=== PATIENT | female | born 1965 | race African-American/Black ===

== ENCOUNTER 2019-09-19 16:52 | Observation (INO) | payer OTHER ==
[2019-09-19] MEDS ORDERED: ASPIRIN 81 MG CHEWABLE TABLET ONE (17:26)
--- NOTE | 2019-09-19 17:42 | ER ---
Nurse's Notes [facility] Name: Yomaira Hutchison Age: 54 yrs Sex: Female : 1965 Arrival Date: 09/19/2019 Time: 16:53 Bed 15 Private MD: Rex Le R Diagnosis: Other chest pain;Essential (primary) hypertension Presentation: 09/19 16:59 Presenting complaint: Patient states: anterior chest pain that radiates to the back and sv left arm, bilateral jaw pain, SOB since Tuesday. Transition of care: patient was not received from another setting of care. Onset of symptoms was September 14, 2019. 16:59 Method Of Arrival: Ambulatory sv 16:59 Acuity: DEISY 2 sv 20:19 Risk Assessment: Do you want to hurt yourself or someone else? Patient reports no rv desire to harm self or others. Initial Sepsis Screen: Does the patient meet any 2 criteria? No. Patient's initial sepsis screen is negative. Does the patient have a suspected source of infection? No. Patient's initial sepsis screen is negative. Care prior to arrival: None. Triage Assessment: 17:00 General: Appears in no apparent distress. comfortable, obese, Behavior is cooperative, bp appropriate for age, anxious. Pain: Complains of pain in chest. EENT: No deficits noted. Neuro: No deficits noted. Cardiovascular: Rhythm is sinus rhythm. Respiratory: No deficits noted. GI: No signs and/or symptoms were reported involving the gastrointestinal system. : No signs and/or symptoms were reported regarding the genitourinary system. Derm: No deficits noted. Musculoskeletal: No deficits noted. Historical: - Allergies: 17:00 Sulfa (Sulfonamide Antibiotics); sv - PMHx: 17:00 Thyroid problem; bradycardia; sv - PSHx: 17:00 Tonsillectomy; Hysterectomy; Nasal Sugery; cardiac stents x 3; sv - Immunization history:: Adult Immunizations up to date. - Family history:: not pertinent. - Social history:: Smoking status: unknown. - Ebola Screening: : No symptoms or risks identified at this time. Screenin:56 Abuse screen: Denies threats or abuse. Denies injuries from another. Nutritional bp screening: No deficits noted. Tuberculosis screening: No symptoms or risk factors identified. Fall Risk None identified. Assessment: 17:00 General: SEE TRIAGE NOTE. bp 17:55 Reassessment: ADMIT INITIATED. NO S/S ACUTE DISTRESS, STATES PAIN PRESENT BUT MINIMAL. bp 18:31 Reassessment: ADMIT IN PROCESS, TO BE HELD FOR SHIFT CHANGE. PT STATES RELIEF OF S/S bp AFTER MEDICATION. 20:20 Pain: Pain began suddenly. rv 20:20 Pain: Pain does not radiate. rv Vital Signs: 16:59 BP 162 / 90; Pulse 67; Resp 20; Temp 97; Pulse Ox 98% ; Weight 125.19 kg; Height 5 ft. sv 4 in. (162.56 cm); 18:00 BP 160 / 86; Pulse 73; Resp 17; Pulse Ox 98% ; bp 19:00 BP 150 / 80; Pulse 66; Resp 17; Pulse Ox 98% on R/A; rv 20:18 BP 115 / 84; Pulse 63; Resp 16; Pulse Ox 97% on R/A; rv 16:59 Body Mass Index 47.37 (125.19 kg, 162.56 cm) sv ED Course: 16:53 Patient arrived in ED. as 17:00 Triage completed. sv 17:00 Rex Le MD is Private Physician. as 17:01 Chuy Boyd MD is Attending Physician. cielo 17:01 Arm band placed on. sv 17:02 Senthil Breen, AMBIKA is Primary Nurse. bp 17:16 Missed attempt(s): 22 gauge in right antecubital area. Bleeding controlled, band aid ca1 applied, catheter tip intact. 17:41 Charlene Cortez MD is Hospitalizing Provider. cielo 17:45 Inserted saline lock: 22 gauge in left antecubital area, using aseptic technique. Blood bp collected. Patient maintains SpO2 saturation greater than 95% on room air. 17:56 Patient has correct armband on for positive identification. Bed in low position. Call bp light in reach. Side rails up X2. director credit risk on. Pulse ox on. NIBP on. 20:19 No provider procedures requiring assistance completed. Patient admitted, IV remains in rv place. Administered Medications: 17:45 Drug: Aspirin Chewable Tablet 162 mg Route: PO; bp 18:33 Follow up: Response: No adverse reaction bp 18:00 Drug: Lovenox 100 mg Route: Sub-Q; Site: right lower abdomen; bp 18:33 Follow up: Response: No adverse reaction bp 18:00 Drug: morphine 4 mg Route: IVP; Site: left antecubital; bp 18:34 Follow up: Response: No adverse reaction bp 18:00 Drug: Zofran 4 mg Route: IVP; Site: left antecubital; bp 18:34 Follow up: Response: Nausea is decreased bp Outcome: 17:41 Decision to Hospitalize by Provider. cielo 20:20 Admitted to Tele accompanied by tech, via wheelchair, room 426, with chart, Report rv called to SADIA APPLE 20:20 Condition: good 20:20 Instructed on the need for admit. 20:21 Patient left the ED. rv Signatures: Norah Farooq RN RN Chuy Gómez MD MD cha Martinez, Amelia as Peltier, Brian RN RN Isaias Flynn RN RN rv Felisa Hernandez RN RN ca1 Corrections: (The following items were deleted from the chart) 17:01 16:59 Temp 97F; [facility]
--- NOTE | 2019-09-19 17:42 | EDPHYS ---
Physician Documentation [facility] Name: Yomaira Hutchison Age: 54 yrs Sex: Female : 1965 Arrival Date: 09/19/2019 Time: 16:53 Bed 15 Private MD: Rex Le R ED Physician Chuy Boyd HPI: 09/19 17:36 This 54 yrs old Black Female presents to ER via Ambulatory with complaints of Chest cielo Pain. 17:36 The patient or guardian reports chest pain that is located primarily in the substernal cielo area, anterior chest wall, left. Onset: 2 day(s) ago. The pain does not radiate. Associated signs and symptoms: Pertinent positives: dizziness, shortness of breath. The chest pain is described as a pressure. Severity of pain: At its worst the pain was mild moderate in the emergency department the pain has improved mildly. The patient has experienced similar episodes in the past, a few times. Historical: - Allergies: 17:00 Sulfa (Sulfonamide Antibiotics); sv - PMHx: 17:00 Thyroid problem; bradycardia; sv - PSHx: 17:00 Tonsillectomy; Hysterectomy; Nasal Sugery; cardiac stents x 3; sv - Immunization history:: Adult Immunizations up to date. - Family history:: not pertinent. - Social history:: Smoking status: unknown. - Ebola Screening: : No symptoms or risks identified at this time. ROS: 17:36 Constitutional: Negative for fever, chills, and weight loss, Eyes: Negative for injury, cielo pain, redness, and discharge, ENT: Negative for injury, pain, and discharge, Neck: Negative for injury, pain, and swelling, Respiratory: Negative for shortness of breath, cough, wheezing, and pleuritic chest pain, Abdomen/GI: Negative for abdominal pain, nausea, vomiting, diarrhea, and constipation, Back: Negative for injury and pain, : Negative for injury, bleeding, discharge, and swelling, MS/Extremity: Negative for injury and deformity, Skin: Negative for injury, rash, and discoloration, Neuro: Negative for headache, weakness, numbness, tingling, and seizure, Psych: Negative for depression, anxiety, suicide ideation, homicidal ideation, and hallucinations, Allergy/Immunology: Negative for hives, rash, and allergies, Endocrine: Negative for neck swelling, polydipsia, polyuria, polyphagia, and marked weight changes, Hematologic/Lymphatic: Negative for swollen nodes, abnormal bleeding, and unusual bruising. 17:36 Cardiovascular: Positive for chest pain. Exam: 17:36 Constitutional: This is a well developed, well nourished patient who is awake, alert, cielo and in no acute distress. Head/Face: Normocephalic, atraumatic. Eyes: Pupils equal round and reactive to light, extra-ocular motions intact. Lids and lashes normal. Conjunctiva and sclera are non-icteric and not injected. Cornea within normal limits. Periorbital areas with no swelling, redness, or edema. ENT: Nares patent. No nasal discharge, no septal abnormalities noted. Tympanic membranes are normal and external auditory canals are clear. Oropharynx with no redness, swelling, or masses, exudates, or evidence of obstruction, uvula midline. Mucous membranes moist. Neck: Trachea midline, no thyromegaly or masses palpated, and no cervical lymphadenopathy. Supple, full range of motion without nuchal rigidity, or vertebral point tenderness. No Meningismus. Chest/axilla: Normal chest wall appearance and motion. Nontender with no deformity. No lesions are appreciated. Cardiovascular: Regular rate and rhythm with a normal S1 and S2. No gallops, murmurs, or rubs. Normal PMI, no JVD. No pulse deficits. Respiratory: Lungs have equal breath sounds bilaterally, clear to auscultation and percussion. No rales, rhonchi or wheezes noted. No increased work of breathing, no retractions or nasal flaring. Abdomen/GI: Soft, non-tender, with normal bowel sounds. No distension or tympany. No guarding or rebound. No evidence of tenderness throughout. Back: No spinal tenderness. No costovertebral tenderness. Full range of motion. Female : Normal external genitalia. Skin: Warm, dry with normal turgor. Normal color with no rashes, no lesions, and no evidence of cellulitis. MS/ Extremity: Pulses equal, no cyanosis. Neurovascular intact. Full, normal range of motion. Neuro: Awake and alert, GCS 15, oriented to person, place, time, and situation. Cranial nerves II-XII grossly intact. Motor strength 5/5 in all extremities. Sensory grossly intact. Cerebellar exam normal. Normal gait. Psych: Awake, alert, with orientation to person, place and time. Behavior, mood, and affect are within normal limits. 17:36 Musculoskeletal/extremity: DVT Exam: No signs of deep vein thrombosis. no pain, no swelling, no tenderness, negative Homans' sign noted on exam, no appreciated bluish discoloration, no erythema, no increased warmth. Vital Signs: 16:59 BP 162 / 90; Pulse 67; Resp 20; Temp 97; Pulse Ox 98% ; Weight 125.19 kg; Height 5 ft. sv 4 in. (162.56 cm); 18:00 BP 160 / 86; Pulse 73; Resp 17; Pulse Ox 98% ; bp 19:00 BP 150 / 80; Pulse 66; Resp 17; Pulse Ox 98% on R/A; rv 20:18 BP 115 / 84; Pulse 63; Resp 16; Pulse Ox 97% on R/A; rv 16:59 Body Mass Index 47.37 (125.19 kg, 162.56 cm) sv MDM: 17:01 Patient medically screened. [facility] 17:38 Data reviewed: vital signs, nurses notes, lab test result(s), EKG, radiologic studies, cielo plain films. 09/19 17:04 Order name: Basic Metabolic Panel; Complete Time: 18:39 [facility] 09/19 17:04 Order name: CBC with Diff [facility] 09/19 17:04 Order name: LFT's; Complete Time: 18:39 [facility] 09/19 17:04 Order name: Magnesium; Complete Time: 18:39 [facility] 09/19 17:04 Order name: NT PRO-BNP; Complete Time: 18:39 [facility] 09/19 17:04 Order name: PT-INR; Complete Time: 18:39 [facility] 09/19 17:04 Order name: Troponin (emerg Dept Use Only); Complete Time: 18:39 [facility] 09/19 17:04 Order name: Lipase; Complete Time: 18:39 [facility] 09/19 17:04 Order name: Urine Culture [facility] 09/19 17:50 Order name: Basic Metabolic Panel [facility] 09/19 17:50 Order name: Basic Metabolic Panel [facility] 09/19 17:50 Order name: CBC with Automated Diff [facility] 09/19 17:50 Order name: CBC with Automated Diff [facility] 09/19 17:50 Order name: Troponin I [facility] 09/19 17:04 Order name: XRAY Chest (1 view) [facility] 09/19 17:04 Order name: EKG; Complete Time: 17:05 [facility] 09/19 17:50 Order name: CONS Physician Consult [facility] 09/19 17:50 Order name: CONS Physician Consult [facility] 09/19 17:50 Order name: Regular [facility] 09/19 17:50 Order name: Echo with Doppler [facility] 09/19 17:50 Order name: EKG Electrocardiogram [facility] 09/19 17:50 Order name: Troponin I [facility] 09/19 17:51 Order name: Troponin I [facility] 09/19 17:52 Order name: Urine Dipstick--Ancillary (enter results) 09/19 18:18 Order name: RAD; Complete Time: 18:18 [facility] 09/19 18:49 Order name: Urine Dipstick-Ancillary [facility] 09/19 17:04 Order name: Cardiac monitoring; Complete Time: 17:53 [facility] 09/19 17:04 Order name: EKG - Nurse/Tech; Complete Time: 17:53 [facility] 09/19 17:04 Order name: IV Saline Lock; Complete Time: 17:53 [facility] 09/19 17:04 Order name: Labs collected and sent; Complete Time: 17:53 [facility] 09/19 17:04 Order name: O2 Per Protocol; Complete Time: 17:53 [facility] 09/19 17:04 Order name: O2 Sat Monitoring; Complete Time: 17:53 [facility] 09/19 17:04 Order name: Urine Dipstick-Ancillary (obtain specimen); Complete Time: 17:53 [facility] 09/19 17:50 Order name: EKG Electrocardiogram [facility] 09/19 17:50 Order name: EKG Electrocardiogram [facility] 09/19 17:50 Order name: EKG Electrocardiogram [facility] 09/19 17:50 Order name: EKG Electrocardiogram [facility] Administered Medications: 17:45 Drug: Aspirin Chewable Tablet 162 mg Route: PO; bp 18:33 Follow up: Response: No adverse reaction bp 18:00 Drug: Lovenox 100 mg Route: Sub-Q; Site: right lower abdomen; bp 18:33 Follow up: Response: No adverse reaction bp 18:00 Drug: morphine 4 mg Route: IVP; Site: left antecubital; bp 18:34 Follow up: Response: No adverse reaction bp 18:00 Drug: Zofran 4 mg Route: IVP; Site: left antecubital; bp 18:34 Follow up: Response: Nausea is decreased bp Disposition: 09/19/19 17:41 Hospitalization ordered by Charlene Cortez for Observation. Preliminary diagnosis are Other chest pain, Essential (primary) hypertension. - Bed requested for Telemetry/MedSurg (Inpatient). - Status is Observation. rv - Condition is Fair. - Problem is new. - Symptoms have improved. UTI on Admission? No Signatures: Dispatcher [employer] EDMS Kelsey English Stephanie, RN RN sv Chuy Boyd MD MD cha Peltier, Brian, RN RN bp Isaias Springer, RN RN rv Corrections: (The following items were deleted from the chart) 18:09 17:41 Hospitalization Ordered by Charlene Cortez MD for Observation. Preliminary bd diagnosis is Other chest pain; Essential (primary) hypertension. Bed requested for Telemetry/MedSurg (Inpatient). Status is Observation. Condition is Fair. Problem is new. Symptoms have improved. UTI on Admission? No. cielo 20:21 18:09 09/19/2019 17:41 Hospitalization Ordered by Charlene Cortez MD for Observation. rv Preliminary diagnosis is Other chest pain; Essential (primary) hypertension. Bed requested for Telemetry/MedSurg (Inpatient). Status is Observation. Condition is Fair. Problem is new. Symptoms have improved. UTI on Admission? No. bd
[2019-09-19] MEDS ORDERED: MORPHINE 4 MG/ML SYR IV PRN (17:45)
[2019-09-19] MEDS ORDERED: ACETAMINOPHEN 325 MG TABLET PO PRN (17:45)
[2019-09-19] MEDS ORDERED: ONDANSETRON 4 MG/2 ML VIAL IV PRN (17:45)
[2019-09-19] MEDS ORDERED: ENOXAPARIN 100 MG/ML SYR SQ ONE (18:13)
--- NOTE | 2019-09-19 18:16 | RAD REPORT ---
EXAM DESCRIPTION: Mirian Single View09/19/2019 5:55 pm CLINICAL HISTORY: Chest pain COMPARISON: 2014 FINDINGS: The lungs appear clear of acute infiltrate. The heart is mildly enlarged. Postsurgical changes involve the chest. IMPRESSION: No acute abnormalities displayed
[2019-09-19 18:18] LABS: Protime INR 1.16
[2019-09-19 18:29] LABS: ALT/SGPT 22 U/L (12-78); AST/SGOT 17 U/L (15-37); Albumin 3.7 g/dL (3.4-5.0); Alkaline Phosphatase 76 U/L (45-117); BUN Blood Urea Nitrogen 13 mg/dL (7-18); Bicarbonate 29 mmol/L (21-32); Bilirubin Direct < 0.1 mg/dL (0-0.2); Bilirubin Total 0.3 mg/dL (0.2-1.0); Glucose Level 102 mg/dL (74-106); Lipase 92 U/L (73-393); Magnesium 2.1 mg/dL (1.8-2.4); NT PRO-BNP 159 pg/mL (<125); Potassium 3.9 mmol/L (3.5-5.1); Protein, Total 8.1 g/dL (6.4-8.2); Sodium Level 140 mmol/L (136-145); Troponin (Emerg Dept Use Only) 0.04 ng/mL (0.0-0.045)
[2019-09-19 18:34] LABS: Absolute Lymphocytes (CBC) 2.5 K/uL (0.7-4.9); Basophils % 0.8 % (0-1.3); Hematocrit 33.8 % (36.0-45.0); Lymphocytes % 35.6 % (15.3-44.8); MPV 9.2 fL (7.6-11.3); RBC Red Blood Cell Count 4.23 M/uL (3.86-4.86)
[2019-09-19 18:48] LABS: Urine Blood NEGATIVE (NEG); Urine Glucose NEGATIVE (NEG); Urine Protein NEGATIVE (NEG); Urine Specific Gravity 1.015 (1.005-1.030); Urine pH 5.5 (5.0-7.0)
[2019-09-19] MEDS: ENOXAPARIN 100 MG/ML SYR SQ SCH (20:50)
[2019-09-19 21:12] VITALS: BMI 47.4
[2019-09-19] MEDS ORDERED: TEMAZEPAM 15 MG CAP PO PRN (22:37)
[2019-09-19 22:59] VITALS: O2SAT 97
[2019-09-19] MEDS: FAMOTIDINE 20 MG/2 ML VIAL IV SCH (23:41)
[2019-09-20 03:35] LABS: Absolute Lymphocytes (CBC) 2.2 K/uL (0.7-4.9); Basophils % 1.1 % (0-1.3); Hematocrit 31.4 % (36.0-45.0); Lymphocytes % 29.6 % (15.3-44.8); MPV 8.4 fL (7.6-11.3); RBC Red Blood Cell Count 3.95 M/uL (3.86-4.86)
[2019-09-20 03:56] LABS: Potassium 3.8 mmol/L (3.5-5.1)
[2019-09-20] MEDS ORDERED: INFLUENZA VACCINE (for 3y+) 0.5 ML DOSE IMVAC ONE ×2 (08:00→16:00)
--- NOTE | 2019-09-20 08:46 | P.HP ---
Certification for Inpatient Patient admitted to: Observation With expected LOS: <2 Midnights Patient will require the following post-hospital care: None Practitioner: I am a practitioner with admitting privileges, knowledge of patient current condition, hospital course, and medical plan of care. Services: Services provided to patient in accordance with Admission requirements found in Title 42 Section 412.3 of the Code of Federal Regulations Patient History Date of Service: 09/19/19 Reason for admission: Chest pain rule out acute coronary syndrome History of Present Illness: patient is a 54-year-old female who came to the hospital with sternal discomfort. Pain was mainly in the sternal region and it did radiate to her back. She had this started on medications for her abdominal pain and nausea and vomiting. She was also having some upper quadrant tenderness which is most likely related to hernia. Patient will need admission for hospitalization. We will check a game in devices and we will monitor her cardiac status closely. Admit for further evaluation. Patient will be admitted for observation. Allergies Sulfa (Sulfonamide Antibiotics) Allergy (Unknown, Verified 04/05/14 05:21) swelling Home Medications: Aspirin 81 mg PO DAILY 04/05/14 Ezetimibe [Zetia*] 10 mg PO BEDTIME 04/05/14 Isosorbide Mononitrate [Isosorbide Mononitrate ER] 30 mg PO DAILY 04/05/14 Levothyroxine [Synthroid] 112 mcg PO [id number] 04/05/14 Omeprazole [Prilosec] 40 mg PO DAILY 04/05/14 Simvastatin [Zocor*] 40 mg PO BEDTIME 04/05/14 Lactobacillus Acidophilus [Probiotic] 1 cap PO DAILY 09/19/19 Prasugrel HCl 10 mg PO SEECOM 09/19/19 - Past Medical/Surgical History Has patient received pneumonia vaccine in the past: No Diabetic: No -: bradycardia -: heart disease -: cardiac stents -: hypercholesterolemia -: reflux -: hypothyroidism -: triple bypass -: cardiac stents x 3 -: hysterectomy -: tonsillectomy -: nasal sx - Family History Father Medical History: Heart disease, Hypertension, Diabetes, Kidney disease Notes: neuropathy Mother Medical History: Hypertension Notes: hypothyroidism. irregular heart beat Brother Medical History: Hypertension - Social History Smoking Status: Never smoker Alcohol use: Yes CD- Drugs: No Caffeine use: Yes Place of Residence: Home Review of Systems 10-point ROS is otherwise unremarkable Physical Examination - Vital Signs Temperature: 96.8 F Blood Pressure: 137/63 Pulse: 130 Respirations: 16 Pulse Ox (%): 92 - Physical Exam General: Alert, In no apparent distress, Oriented x3 HEENT: Atraumatic, PERRLA, Mucous membr. moist/pink, EOMI, Sclerae nonicteric Neck: Supple, 2+ carotid pulse no bruit, No LAD, Without JVD or thyroid abnormality Respiratory: Clear to auscultation bilaterally, Normal air movement Cardiovascular: Regular rate/rhythm, Normal S1 S2, No murmurs Gastrointestinal: Normal bowel sounds, Hypoactive, Soft and benign, Non- distended, No tenderness Musculoskeletal: No clubbing, No swelling, No tenderness Integumentary: No rashes Neurological: Normal gait, Normal speech, Normal strength at 5/5 x4 extr, Normal tone, Sensation intact, Cranial nerves 3-12 intact, Normal affect Lymphatics: No axilla or inguinal lymphadenopathy Assessment & Plan - Problems (Diagnosis) (1) Acute coronary insufficiency syndrome Current Visit: No Status: Acute (2) Chest pain Current Visit: No Status: Acute - Plan 1. Serial troponins and EKG 2. Cardiology consultation 3. Echocardiogram and possible inpatient stress test 4. Anti-platelet therapy, anti coagulation, beta-bing, statin, and O2 as needed 5. IV morphine for pain 6. Nitro p.r.n. Discharge Plan: Home Plan to discharge in: 24 Hours - Advance Directives Does patient have a Living Will: No Does patient have a Durable POA for Healthcare: No - Code Status/Comfort Care Code Status Assessed: Yes Code Status: Full Code Critical Care: No Time Spent Managing PTS Care (In Minutes): 45
[2019-09-20] MEDS ORDERED: ASPIRIN EC 81 MG TAB PO SCH (09:00)
[2019-09-20] MEDS: ENOXAPARIN 100 MG/ML SYR SQ SCH (09:00)
[2019-09-20] MEDS: FAMOTIDINE 20 MG/2 ML VIAL IV SCH (09:40)
--- NOTE | 2019-09-20 10:59 | EKG ---
Test Date: 2019-09-20 Test Time: 08:44:25 Assistant Finance Director: ANDREW MEASUREMENT RESULTS: Intervals: Rate: 56 DE: 262 QRSD: 80 QT: 436 QTc: 420 Irwin: P: 43 DE: 262 QRS: 45 T: 70 INTERPRETIVE STATEMENTS: Sinus bradycardia with 1st degree AV block Otherwise normal ECG Compared to ECG 09/19/2019 17:21:31 Sinus rhythm no longer present T-wave abnormality no longer present Electronically Signed On 09-20-19 10:58:09 BRANCH LOGISTICS SUPERVISOR by Indra Pepper
[2019-09-20] MEDS ORDERED: LEVOTHYROXINE SOD 0.112 MG TAB PO SCH (11:00)
[2019-09-20] MEDS ORDERED: ISOSORBIDE MONO SR 30 MG TAB PO SCH (11:00)
[2019-09-20] MEDS ORDERED: PRASUGREL (EFFIENT) 10 MG TAB PO SCH ×2 (11:00)
--- NOTE | 2019-09-20 11:00 | EKG ---
Test Date: 2019-09-19 Test Time: 17:21:31 Shaker Washer: TT MEASUREMENT RESULTS: Intervals: Rate: 63 MN: 218 QRSD: 78 QT: 404 QTc: 413 Jenkins: P: 53 MN: 218 QRS: 87 T: 66 INTERPRETIVE STATEMENTS: Sinus rhythm with 1st degree AV block Nonspecific T wave abnormality Abnormal ECG Compared to ECG 04/07/2014 08:46:27 First degree AV block now present T-wave abnormality still present Electronically Signed On 09-20-19 10:58:24 HIGH LIFT OPERATOR by Indra Pepper
--- NOTE | 2019-09-20 11:17 | ECHO ---
HEIGHT: 5 ft 4 in WEIGHT: 276 lb 4.8 oz DATE OF STUDY: 09/20/[address]: Chuy Boyd MD 2-DIMENSIONAL: YES M.MODE: YES DOPPLER: YES COLOR FLOW: YES TDS: YES PORTABLE: NO DEFINITY: NO BUBBLE STUDY: NO DIAGNOSIS: CHEST PAIN CARDIAC HISTORY: CATHERIZATION: YES SURGERY: YES PROSTHETIC VALVE: NO PACEMAKER: NO MEASUREMENTS (cm) DIASTOLIC (NORMALS) SYSTOLIC (NORMALS) IVSd 1.0 (0.6-1.2) LA Diam 2.9 (1.9-4.0) LVEF 51% LVIDd 3.7 (3.5-5.7) LVIDs 2.8 (2.0-3.5) %FS 25% LVPWd 1.1 (0.6-1.2) Ao Diam 2.6 (2.0-3.7) 2 DIMENSIONAL ASSESSMENT: RIGHT ATRIUM: NORMAL LEFT ATRIUM: NORMAL RIGHT VENTRICLE: NORMAL LEFT VENTRICLE: NORMAL TRICUSPID VALVE: NORMAL MITRAL VALVE: NORMAL PULMONIC VALVE: NORMAL AORTIC VALVE: NORMAL PERICARDIAL EFFUSION: NONE AORTIC ROOT: NORMAL LEFT VENTRICULAR WALL MOTION: NORMAL. DOPPLER/COLOR FLOW: NORMAL. COMMENTS: NORMAL 2D ECHO WITH DOPPLER. NO WALL MOTION ABNORMALITY. NO EFFUSION. TECHNOLOGIST: MAGUI COLVIN
[2019-09-20 12:02] VITALS: BP 146/70; TEMP 96.9
--- NOTE | 2019-09-20 20:28 | CON ---
Date of Consultation: 09/20/2019 Reason For Consultation: Chest pain. History Of Present Illness: Ms. Hutchison is a 54-year-old black woman, has had a history of CABG in t he past as well as coronary artery disease status post stent x3. She has a history of dyslipidemia, hypertension, hypothyroidism, gastroesophageal reflux disease. She came in with chest pain that is m ostly exertional. It happens mostly with severe exertion and it does last for about 5 to 10 minutes. No nausea, vomiting, diaphoresis, PND, orthopnea, pedal edema, palpitations, or syncope. Her last stress test in my office was approximately a year ago showing no evidence of ischemia. So far she hodgson s ruled out for an KS. Her EKG, chest x-ray, blood work are all normal. Troponin is negative. Echo cardiogram was normal. She is now symptoms free. Allergies: NONE. Review of Systems: Negative. Social History: Negative. Family History: Noncontributory. Medications: At home include Synthroid, Prilosec, aspirin, Zetia, Imdur, Effient, and Zocor. Physical Examination: General: She is pleasant as usual. Vital Signs: Stable, afebrile. No acute distress. Sinus rhythm. HEENT: Negative. Neck: Supple with no bruit, lymphadenopathy, JVD, or thyromegaly. Chest: Clear to auscultation and percussion. Cardiac: Revealed a regular rhythm and rate. No murmurs, gallops, or rubs. Abdomen: Benign. Extremities: Revealed no clubbing, cyanosis, or edema. Skin: Dry and intact. Neurological: She was nonfocal. Impression And Plan: I think Ms. Hutchison is having symptoms that are consistent with angina. She hodgson d symptoms on exertion that last 5 to 10 minutes. She has ruled out for an KS, never the less, but s uggested a heart catheterization on her. Ms. Hutchison is nervous about having a catheterization in [facility]. She has had complications in the past with her catheterization. She would prefer having it done in [place]. From my standpoint, she can go home today. I will make a regular followup to cait whitley an outpatient catheterization with 1 of the crew leader/control room operator at [facility]. She understand the risk and the benefits of the procedure, understands the risks and the benefits of being discharge d and she agreed to proceed. Meanwhile, her blood pressure was poorly controlled and I will add a ca lcium channel bing to her regimen for antianginal purposes. I am going to start Norvasc. In the past, metoprolol made her very bradycardic and very tired and she had to stop it. From a coronary ar sanju disease standpoint, she has had CABG. She had a HUMPHREYS to the LAD that is open. She had vein gra ft to the OM and the RCA, both were occluded. She had a 90% diagonal lesion. She had circumflex adalbetro nt and RCA stents as well. Her other problems include dyslipidemia, hypothyroidism, gastroesophageal reflux disease, and obesity, all of those seem to be stable at this point. Again Ms. Hutchison can go home. I will make arrangements for her to have an outpatient catheterization in [place]. The only addition to her medicine should be Norvasc 5 mg daily. ENDY/MARY Voice ID: [id number] Report ID: [id number]
[2019-09-20] MEDS ORDERED: ATORVASTATIN 20 MG TAB PO SCH (21:00)
[2019-09-20] MEDS ORDERED: EZETIMIBE 10 MG TAB PO SCH (21:00)
[2019-09-21] MEDS ORDERED: LEVOTHYROXINE SOD 0.112 MG TAB PO SCH (06:00)
[2019-09-21] MEDS ORDERED: LACTOBACILLUS/ACIDOPHILUS TAB PO SCH (09:00)
[2019-09-21] MEDS ORDERED: ISOSORBIDE MONO SR 60 MG TAB PO SCH (09:00)
[2019-09-21] MEDS ORDERED: HOME MED 1 EA UNK (Omeprazole [Prilosec] 40 MG) PO SCH (09:00)
[2019-09-21] MEDS ORDERED: ASPIRIN 81 MG CHEWABLE TABLET PO SCH (09:00)
[2019-09-21] MEDS ORDERED: AMLODIPINE 5 MG TAB PO SCH (09:00)
--- NOTE | 2019-09-22 01:11 | P.DS ---
Discharge Date: 09/20/19 Disposition: ROUTINE DISCHARGE Discharge Condition: GOOD Reason for Admission: Chest pain rule out acute coronary syndrome Consultations: INSIDE WIREMAN - Problems (1) Acute coronary insufficiency syndrome Status: Acute (2) Chest pain Status: Acute Brief History of Present Illness: patient is a 54-year-old female who came to the hospital with sternal discomfort. Pain was mainly in the sternal region and it did radiate to her back. She had this started on medications for her abdominal pain and nausea and vomiting. She was also having some upper quadrant tenderness which is most likely related to hernia. Patient will need admission for hospitalization. We will check a game in devices and we will monitor her cardiac status closely. Admit for further evaluation. Patient will be admitted for observation. Hospital Course: PATIENT TROPONINS HAVE BEEN NEGATIVE. PATIENT BEEN HAVING ANGINA AND WAS STARTED ON AMLODIPINE. AT THIS TIME PATIENT IS STABLE FOR DISCHARGE HOME WITH OUTPATIENT FOLLOW-UP. PATIENT WILL FOLLOW WITH CARDIOLOGY IN 1 WEEK. POSSIBLE INTERVENTION THAT MAY BE NEEDED AT [facility] IN [place]. THIS WILL BE ARRANGED AN OUTPATIENT PER CARDIOLOGY IF DEEMED NECESSARY. Vital Signs/Physical Exam: Temp Pulse Resp BP Pulse Ox 96.9 F 59 16 146/70 H 98 09/20/19 12:00 09/20/19 12:00 09/20/19 12:00 09/20/19 12:00 09/20/19 12:00 General: Alert, In no apparent distress, Oriented x3 Laboratory Data at Discharge: WBC 7.4 K/uL (4.3-10.9) 09/20/19 03:13 Hgb 10.1 g/dL (12.0-15.0) L 09/20/19 03:13 Hct 31.4 % (36.0-45.0) L 09/20/19 03:13 Plt Count 241 K/uL (152-406) D 09/20/19 03:13 PT 13.6 SECONDS (9.5-12.5) H 09/19/19 17:45 INR 1.16 09/19/19 17:45 Sodium 141 mmol/L (136-145) 09/20/19 03:13 Potassium 3.8 mmol/L (3.5-5.1) 09/20/19 03:13 BUN 13 mg/dL (7-18) 09/20/19 03:13 Creatinine 0.83 mg/dL (0.55-1.3) 09/20/19 03:13 Glucose 101 mg/dL (74-106) 09/20/19 03:13 Magnesium 2.1 mg/dL (1.8-2.4) 09/19/19 17:45 Total Bilirubin 0.3 mg/dL (0.2-1.0) 09/19/19 17:45 AST 17 U/L (15-37) 09/19/19 17:45 ALT 22 U/L (12-78) 09/19/19 17:45 Alkaline Phosphatase 76 U/L (45-117) 09/19/19 17:45 Troponin I 0.03 ng/mL (0.0-0.045) 09/20/19 03:13 Lipase 92 U/L (73-393) 09/19/19 17:45 Home Medications: Aspirin 81 mg PO DAILY 04/05/14 Ezetimibe [Zetia*] 10 mg PO BEDTIME 04/05/14 Isosorbide Mononitrate [Isosorbide Mononitrate ER] 30 mg PO DAILY 04/05/14 Levothyroxine [Synthroid*] 112 mcg PO [id number] 04/05/14 Omeprazole [Prilosec] 40 mg PO DAILY 04/05/14 Simvastatin [Zocor*] 40 mg PO BEDTIME 04/05/14 Lactobacillus Acidophilus [Probiotic] 1 cap PO DAILY 09/19/19 Prasugrel HCl 10 mg PO SEECOM 09/19/19 Amlodipine [Norvasc*] 5 mg PO DAILY #30 tab 09/20/19 Temazepam [Restoril*] 15 mg PO BEDTIME PRN PRN #7 cap 09/20/19 New Medications: Amlodipine [Norvasc*] 5 mg PO DAILY #30 tab Temazepam [Restoril*] 15 mg PO BEDTIME PRN PRN #7 cap PRN Reason: Insomnia Patient Discharge Instructions: OK TO DC IV AND DC HOME IF OKAY WITH CARDIOLOGY. FOLLOW-UP WITH PRIMARY CARE PROVIDER IN 1-2 WEEKS. FOLLOW-UP WITH CARDIOLOGY IN 1-2 WEEKS. RETURN TO THE ER IF SYMPTOMS WORSEN. CALL DR. TIAN AT [phone] IF ANY QUESTIONS REGARDING HOSPITAL STAY. PLEASE CALL THE FLOOR AT [phone] IF ANY MEDICATION OR NURSING QUESTIONS. Diet: AHA Activity: Fall precautions Followup: Indra Pepper MD [ACTIVE - CAN ADMIT] - 1 Week (Call office to schedule an appointment) Rex Le MD [Primary Care Provider] - 1-2 Weeks (call to schedule an appointment) Time spent managing pt's care (in minutes): 25
== END 2019-09-20 16:28 | disposition home or self-care (01) ==
LOC: ER 16:52 → ERHOLD 17:43 → 4TH 20:04
PROVIDERS: ADMIT Hospitalist; ATTEND Hospitalist
DX: I24.9 Acute ischemic heart disease, unspecified (principal); R07.9 Chest pain, unspecified; I25.119 Atherosclerotic heart disease of native coronary artery with unspecified angina pectoris; E78.5 Hyperlipidemia, unspecified; I10 Essential (primary) hypertension; E03.9 Hypothyroidism, unspecified; K21.9 Gastro-esophageal reflux disease without esophagitis; Z95.1 Presence of aortocoronary bypass graft; Z95.5 Presence of coronary angioplasty implant and graft; Z23 Encounter for immunization
CPT/HCPCS: 93005 ×2; 93306; 87088; 85025 ×2; 87086; 80048 ×2; 36415; 83735; 85610; 80076; 81003; 84484 ×3; 83690; 83880; 71045; 90471; 96375; 96372; 96374; 99285; Q2035; J1650; J2405 ×2; G0378 ×3